=== PATIENT | male | born 1945 | race Asian ===

== ENCOUNTER 2017-03-02 08:16 | Inpatient (IN) | payer OTHER ==
[~2017-03-02] VITALS: Ht 152.4 cm; Wt 56.7 kg
[2017-03-02 08:53] LABS: BASOPHIL % 0.5 % (0-2); PLATELET COUNT 199 x10^3mcL (130-400); RED CELL DISTRIBUTION WIDTH 13.9 % (11.5-14.5)
[2017-03-02 09:06] LABS: CALCIUM 8.6 mg/dL (8.5-10.1); CARBON DIOXIDE 30.1 mmol/L (21-32); CHLORIDE SERUM 100 mmol/L (98-107); CREATININE SERUM 1.4 mg/dL (0.7-1.3); GLUCOSE SERUM 192 mg/dL (74-106); POTASSIUM SERUM 3.4 mmol/L (3.5-5.1); SODIUM SERUM 136 mmol/L (136-145)
[2017-03-02 09:11] LABS: ALKALINE PHOSPHATASE 110 U/L (46-116); ALT/SGPT 47 U/L (16-63); AST/SGOT 70 U/L (15-37); BILIRUBIN TOTAL 1.5 mg/dL (0.20-1.00); LIPASE 303 IU/L (73-393)
[2017-03-02] MEDS ORDERED: COLCHICINE0.6 M1 PO (09:57)
[2017-03-02] MEDS ORDERED: JANUVIA100 M1 PO (09:57)
[2017-03-02] MEDS ORDERED: NOR10 PO (09:58)
[2017-03-02] MEDS ORDERED: GLUCOTROL5 MG PO (09:58)
[2017-03-02] MEDS ORDERED: TENORMIN50 MG PO (09:59)
[2017-03-02] MEDS ORDERED: LOSARTAN POTASS50 M1 PO (10:00)
[2017-03-02 11:15] LABS: microscopic required? YES; urine erythrocyte TRACE (NEGATIVE)
[2017-03-02 11:38] LABS: MAGNESIUM 1.8 mg/dL (1.8-2.4); PHOSPHOROUS 2.8 mg/dL (2.5-4.9)
[2017-03-02 11:56] LABS: CHOLESTEROL/HDL RATIO 4.2
[2017-03-02 12:08] VITALS: BP 144/75
[2017-03-02 12:23] LABS: T3 TOTAL 0.89 ng/mL
[2017-03-02 12:48] LABS: FREE T4 1.28 ng/dL (0.76-1.46); FREE THYROXINE INDEX 3.4 ug/dL (1.4-4.5); T4(THYROXINE) 10.2 ug/dL (4.7-13.3)
[2017-03-02 17:49] VITALS: BP 141/79
[2017-03-02 21:26] VITALS: BP 152/84
[2017-03-03 05:35] VITALS: BP 147/64
[2017-03-03 07:00] LABS: PLATELET COUNT 175 x10^3mcL (130-400); RED CELL DISTRIBUTION WIDTH 13.6 % (11.5-14.5)
[2017-03-03 07:15] LABS: CALCIUM 8.5 mg/dL (8.5-10.1); CARBON DIOXIDE 27.1 mmol/L (21-32); CHLORIDE SERUM 104 mmol/L (98-107); CREATININE SERUM 1.2 mg/dL (0.7-1.3); GLUCOSE SERUM 144 mg/dL (74-106); MAGNESIUM 1.8 mg/dL (1.8-2.4); PHOSPHOROUS 2.7 mg/dL (2.5-4.9); POTASSIUM SERUM 3.3 mmol/L (3.5-5.1); SODIUM SERUM 138 mmol/L (136-145)
[2017-03-03 08:21] VITALS: BP 141/81
[2017-03-03 08:44] LABS: BAND NEUTROPHIL 0 % (0-10); MONOCYTE 22 % (0-7); SEGMENTED NEUTROPHILS 59 % (37-75)
[2017-03-03 08:45] LABS: BASOPHIL 0 % (0-2); PLATELET MORPHOLOGY PLATELETS NORMAL
[2017-03-03 10:42] LABS: PLATELET COUNT 176 x10^3mcL (130-400); RED CELL DISTRIBUTION WIDTH 13.8 % (11.5-14.5)
[2017-03-03 11:42] LABS: BAND NEUTROPHIL 0 % (0-10); BASOPHIL 0 % (0-2); MONOCYTE 20 % (0-7); PLATELET MORPHOLOGY PLATELETS NORMAL; SEGMENTED NEUTROPHILS 64 % (37-75)
[2017-03-03 13:30] VITALS: BP 142/65
[2017-03-03 17:55] VITALS: BP 116/76; BP 154/82
[2017-03-03 21:50] VITALS: BP 147/94
[2017-03-04] VITALS (7 sets, daily range): BP systolic 121–155; BP diastolic 57–91
[2017-03-04 07:18] LABS: CALCIUM 8.3 mg/dL (8.5-10.1); CARBON DIOXIDE 25.8 mmol/L (21-32); CHLORIDE SERUM 107 mmol/L (98-107); CREATININE SERUM 1.1 mg/dL (0.7-1.3); GLUCOSE SERUM 82 mg/dL (74-106); MAGNESIUM 1.8 mg/dL (1.8-2.4); PHOSPHOROUS 2.7 mg/dL (2.5-4.9); PLATELET COUNT 169 x10^3mcL (130-400); POTASSIUM SERUM 3.3 mmol/L (3.5-5.1); RED CELL DISTRIBUTION WIDTH 13.9 % (11.5-14.5); SODIUM SERUM 140 mmol/L (136-145)
[2017-03-04 08:24] LABS: BAND NEUTROPHIL 0 % (0-10); BASOPHIL 0 % (0-2); MONOCYTE 21 % (0-7); SEGMENTED NEUTROPHILS 51 % (37-75)
[2017-03-04 08:25] LABS: PLATELET MORPHOLOGY PLATELETS NORMAL
[2017-03-05 05:27] VITALS: BP 124/76
[2017-03-05 06:37] LABS: BASOPHIL % 0.3 % (0-2); PLATELET COUNT 197 x10^3mcL (130-400); RED CELL DISTRIBUTION WIDTH 14.2 % (11.5-14.5)
[2017-03-05 06:59] LABS: CALCIUM 8.4 mg/dL (8.5-10.1); CARBON DIOXIDE 26.2 mmol/L (21-32); CHLORIDE SERUM 104 mmol/L (98-107); CREATININE SERUM 1.1 mg/dL (0.7-1.3); GLUCOSE SERUM 86 mg/dL (74-106); POTASSIUM SERUM 3.3 mmol/L (3.5-5.1); SODIUM SERUM 139 mmol/L (136-145)
[2017-03-05 07:09] LABS: ALBUMIN 2.6 g/dL (3.4-5.0)
[2017-03-05 07:50] VITALS: BP 134/78
[2017-03-05 08:30] VITALS: BP 134/78
[2017-03-05] MEDS ORDERED: DIFLUCAN150 MG PO ×2 (10:54→18:54)
[2017-03-05] MEDS ORDERED: LEVAQUIN750 MG PO ×2 (10:56→18:54)
[2017-03-05] MEDS ORDERED: FLA500 PO ×2 (10:57→18:54)
[2017-03-05] MEDS ORDERED: DILAUDID2 MG PO (11:05)
[2017-03-05] MEDS ORDERED: LAC PO ×2 (11:06→18:54)
[2017-03-05 12:04] VITALS: BP 132/61
[2017-03-05 16:44] VITALS: BP 129/69
[2017-03-05] MEDS ORDERED: TENORMIN50 MG PO (18:54)
[2017-03-05] MEDS ORDERED: JANUVIA100 M1 PO (18:54)
[2017-03-05] MEDS ORDERED: NOR10 PO (18:54)
[2017-03-05] MEDS ORDERED: LOSARTAN POTASS50 M1 PO (18:54)
[2017-03-05] MEDS ORDERED: GLUCOTROL5 MG PO (18:54)
[2017-03-05] MEDS ORDERED: COLCHICINE0.6 M1 PO (18:54)
[2017-03-06 12:46] LABS: ALPHA FETOPROTEIN TUMOR MARKER 7.6 ng/mL (0.0-8.3)
== END 2017-03-05 19:10 | disposition home or self-care (01) | DRG 871 ==
LOC: ED 08:16 → DU 10:38
PROVIDERS: Emergency Medicine; Family Medicine Sports Medicine; Internal Medicine Gastroenterology; ADMIT Family Medicine
PROC: 0FB23ZX Excision of Left Lobe Liver, Percutaneous Approach, Diagnostic (ICD-10-PCS; principal; 2017-03-05)
DX: A41.9 Sepsis, unspecified organism (principal); N17.0 Acute kidney failure with tubular necrosis; K80.00 Calculus of gallbladder with acute cholecystitis without obstruction; E44.0 Moderate protein-calorie malnutrition; D68.69 Other thrombophilia; C23 Malignant neoplasm of gallbladder; C78.7 Secondary malignant neoplasm of liver and intrahepatic bile duct; R65.20 Severe sepsis without septic shock; E87.6 Hypokalemia; E11.65 Type 2 diabetes mellitus with hyperglycemia; I10 Essential (primary) hypertension; R31.9 Hematuria, unspecified; E78.5 Hyperlipidemia, unspecified; E02 Subclinical iodine-deficiency hypothyroidism; M71.22 Synovial cyst of popliteal space [Baker], left knee; M71.21 Synovial cyst of popliteal space [Baker], right knee; M67.431 Ganglion, right wrist; M67.432 Ganglion, left wrist; K40.90 Unilateral inguinal hernia, without obstruction or gangrene, not specified as recurrent; M1A.9XX1 Chronic gout, unspecified, with tophus (tophi); Z68.24 Body mass index [BMI] 24.0-24.9, adult; Z79.84 Long term (current) use of oral hypoglycemic drugs
CPT/HCPCS: 83880; 84439; 88344; 90658; J1170; J1956; J2001; J2060; J2250; J2270; J2310; J2405; J3010; J3480; J3490; J7030; J7040; J7042; Q0092; Q9967